=== PATIENT | female | born 1975 | race African-American/Black ===

== ENCOUNTER 2020-03-26 07:47 | Observation (INO) ==
[2020-03-26 09:07] LABS: Basophils % 0.6 % (0.0-0.8); Eosinophils % 0.4 % (0.00-10.9); Hematocrit 40.4 VOL% (35.7-47.0); Hemoglobin 13.4 GM/DL (12.0-16.0); Immature Granulocytes % 0.2 %; Immature Granulocytes Absolute 0.01 #; Lymphocytes # 1.7 10*3/uL (1.4-4.0); Lymphocytes % 31.1 % (21.3-54.2); Mean Corpuscular HGB Conc 33.2 GM/DL (32-36); Mean Corpuscular Volume 89.2 FL (87-102); Mean Platelet Volume 10.5 FL (9.6-12.0); Monocytes % 7.2 % (1.7-12.7); Neutrophils % 60.5 % (38.7-73.9); Platelet Count 212 T/CUMM (130-400); Red Blood Count 4.53 MC/CUMM (3.8-5.5); Red Cell Distribution Width 13.8 % (9.3-17.3); White Blood Count 5.3 T/CUMM (4-12)
[2020-03-26 09:31] LABS: Albumin 3.2 G/DL (3.4-5.0); Bilirubin,Total 0.5 MG/DL (0.2-1.0); Calcium 8.9 MG/DL (8.5-10.1); Osmolality,Calculated 281.3 MOS/KG (273-304); Total Protein 7.2 G/DL (6.4-8.3)
[2020-03-26] MEDS ORDERED: ASPIRIN 325 MG TABLET PO STA (10:48)
[2020-03-26] MEDS ORDERED: ONDANSETRON 4 MG/2 ML VIAL IV PRN (10:48)
[2020-03-26] MEDS ORDERED: DEXTROSE 50% 25 GM/50 ML VIAL IV PRN ×2 (10:48)
[2020-03-26] MEDS ORDERED: ENOXAPARIN 40 MG/0.4 ML SYRINGE SUBCUT SCH (12:00)
[2020-03-26] MEDS: INSULIN LISPRO 100 UNIT/ML SUBCUT SCH ×3 (13:56→21:53)
[2020-03-26] MEDS: INSULIN REGULAR 100 UNIT/ML SUBCUT SCH (16:26)
[2020-03-26 18:24] LABS: Barbiturates Screen,Urine Negative (Negative); Benzodiazepines Screen,Urine Negative (Negative); Cannabinoid Screen,Urine Negative (Negative); Opiate Screen,Urine Negative (Negative); Phencyclidine Screen,Urine Negative (Negative)
[2020-03-26] MEDS: ENOXAPARIN 40 MG/0.4 ML SYRINGE SUBCUT SCH (21:53)
[2020-03-27 05:21] LABS: Basophils % 0.4 % (0.0-0.8); Eosinophils % 0.2 % (0.00-10.9); Hematocrit 37.5 VOL% (35.7-47.0); Hemoglobin 12.4 GM/DL (12.0-16.0); Immature Granulocytes % 0.2 %; Immature Granulocytes Absolute 0.01 #; Lymphocytes # 2.4 10*3/uL (1.4-4.0); Lymphocytes % 46.5 % (21.3-54.2); Mean Corpuscular HGB Conc 33.1 GM/DL (32-36); Mean Corpuscular Volume 89.3 FL (87-102); Mean Platelet Volume 10.5 FL (9.6-12.0); Monocytes % 7.6 % (1.7-12.7); Neutrophils % 45.1 % (38.7-73.9); Platelet Count 199 T/CUMM (130-400); Red Cell Distribution Width 13.9 % (9.3-17.3); White Blood Count 5.2 T/CUMM (4-12)
[2020-03-27 05:56] LABS: Alanine Aminotransferase 38 U/L (13-56); Alkaline Phosphatase 106 U/L (45-117); Aspartate Amino Transferase 31 U/L (0-37); Bilirubin,Direct < 0.100 MG/DL (0.0-0.20); Bilirubin,Indirect 0.7 MG/DL (0.0-1.0); Blood Urea Nitrogen 9 MG/DL (7-18); Calcium 8.7 MG/DL (8.5-10.1); Estimated Glom Filtration Rate 162 ML/MIN; Glucose 103 MG/DL (74-106); HDL Cholesterol 28 MG/DL (40-60); Osmolality,Calculated 279.3 MOS/KG (273-304); Risk Ratio 6.71; Total Protein 6.6 G/DL (6.4-8.3); Triglycerides 110 MG/DL (2-150)
[2020-03-27] MEDS: POTASSIUM CHLORIDE 20 MEQ TABLET PO PRN ×2 (06:34→09:24)
[2020-03-27 06:52] LABS: Calcium 8.5 MG/DL (8.5-10.1); Ferritin 97.4 ng/ml (8-252)
[2020-03-27] MEDS: INSULIN REGULAR 100 UNIT/ML SUBCUT SCH ×2 (08:40→15:48)
[2020-03-27] MEDS: PANTOPRAZOLE 40 MG TABLET PO SCH (08:40)
[2020-03-27] MEDS: ENOXAPARIN 40 MG/0.4 ML SYRINGE SUBCUT SCH ×2 (08:40→21:29)
[2020-03-27] MEDS: INSULIN LISPRO 100 UNIT/ML SUBCUT SCH ×4 (08:40→21:58)
[2020-03-27] MEDS: ASPIRIN 325 MG TABLET PO SCH (08:40)
[2020-03-27] MEDS: ZINC SULFATE 220 MG CAPSULE PO SCH (08:40)
[2020-03-27] MEDS: ASCORBIC ACID 500 MG TABLET PO SCH (08:40)
[2020-03-27] MEDS: THIAMINE 100 MG TABLET PO SCH (08:40)
[2020-03-27] MEDS: DEXAMETHASONE 10 MG/1 ML VIAL IV SCH (10:44)
[2020-03-27] MEDS: sitaGLIPtin 25 MG TABLET PO SCH (21:27)
[2020-03-27] MEDS: FLUTICASONE 50 MCG NASAL SPRAY 16 GM BOTTLE BOTH NARES SCH (21:27)
[2020-03-27] MEDS: metFORMIN 500 MG TABLET PO SCH (21:27)
[2020-03-28 06:57] LABS: Basophils % 0.3 % (0.0-0.8); Eosinophils % 0.2 % (0.00-10.9); Hematocrit 40.2 VOL% (35.7-47.0); Immature Granulocytes % 0.3 %; Immature Granulocytes Absolute 0.02 #; Lymphocytes # 2.3 10*3/uL (1.4-4.0); Lymphocytes % 38.7 % (21.3-54.2); Mean Corpuscular HGB Conc 32.3 GM/DL (32-36); Mean Corpuscular Volume 90.5 FL (87-102); Mean Platelet Volume 10.9 FL (9.6-12.0); Monocytes % 6.2 % (1.7-12.7); Neutrophils % 54.3 % (38.7-73.9); Platelet Count 190 T/CUMM (130-400); Red Blood Count 4.44 MC/CUMM (3.8-5.5); Red Cell Distribution Width 13.8 % (9.3-17.3); White Blood Count 5.8 T/CUMM (4-12)
[2020-03-28 07:17] LABS: Albumin 2.9 G/DL (3.4-5.0); Bilirubin,Direct 0.11 MG/DL (0.0-0.20); Bilirubin,Indirect 0.3 MG/DL (0.0-1.0); Bilirubin,Total 0.4 MG/DL (0.2-1.0); Calcium 8.6 MG/DL (8.5-10.1); Ferritin 107.9 ng/ml (8-252); Osmolality,Calculated 282.1 MOS/KG (273-304); Total Protein 6.7 G/DL (6.4-8.3)
[2020-03-28] MEDS: INSULIN LISPRO 100 UNIT/ML SUBCUT SCH ×4 (07:30→21:09)
[2020-03-28] MEDS: INSULIN REGULAR 100 UNIT/ML SUBCUT SCH ×2 (07:30→17:10)
[2020-03-28] MEDS: lisinopriL 20 MG TABLET PO SCH (10:36)
[2020-03-28] MEDS: ASCORBIC ACID 500 MG TABLET PO SCH (10:36)
[2020-03-28] MEDS: sitaGLIPtin 25 MG TABLET PO SCH ×2 (10:36→21:08)
[2020-03-28] MEDS: hydroCHLOROthiazide 25 MG TABLET PO SCH (10:36)
[2020-03-28] MEDS: DEXAMETHASONE 10 MG/1 ML VIAL IV SCH (10:37)
[2020-03-28] MEDS: ASPIRIN 325 MG TABLET PO SCH (10:37)
[2020-03-28] MEDS: metFORMIN 500 MG TABLET PO SCH ×2 (10:37→21:08)
[2020-03-28] MEDS: PANTOPRAZOLE 40 MG TABLET PO SCH (10:37)
[2020-03-28] MEDS: THIAMINE 100 MG TABLET PO SCH (10:37)
[2020-03-28] MEDS: METOPROLOL SUCCINATE XL 50 MG TABLET PO SCH (10:37)
[2020-03-28] MEDS: ENOXAPARIN 40 MG/0.4 ML SYRINGE SUBCUT SCH ×2 (10:37→21:08)
[2020-03-28] MEDS: FLUTICASONE 50 MCG NASAL SPRAY 16 GM BOTTLE BOTH NARES SCH ×2 (10:38→21:08)
[2020-03-28] MEDS: ZINC SULFATE 220 MG CAPSULE PO SCH (12:52)
[2020-03-29] MEDS: INSULIN LISPRO 100 UNIT/ML SUBCUT SCH (07:30)
[2020-03-29] MEDS: INSULIN REGULAR 100 UNIT/ML SUBCUT SCH (07:30)
[2020-03-29 08:21] LABS: Ferritin 94.4 ng/ml (8-252); Osmolality,Calculated 279.3 MOS/KG (273-304)
[2020-03-29] MEDS: ZINC SULFATE 220 MG CAPSULE PO SCH (08:54)
[2020-03-29] MEDS: FLUTICASONE 50 MCG NASAL SPRAY 16 GM BOTTLE BOTH NARES SCH (08:54)
[2020-03-29] MEDS: sitaGLIPtin 25 MG TABLET PO SCH (08:54)
[2020-03-29] MEDS: ENOXAPARIN 40 MG/0.4 ML SYRINGE SUBCUT SCH (08:54)
[2020-03-29] MEDS: lisinopriL 20 MG TABLET PO SCH (08:55)
[2020-03-29] MEDS: THIAMINE 100 MG TABLET PO SCH (08:55)
[2020-03-29] MEDS: ASCORBIC ACID 500 MG TABLET PO SCH (08:55)
[2020-03-29] MEDS: hydroCHLOROthiazide 25 MG TABLET PO SCH (08:55)
[2020-03-29] MEDS: PANTOPRAZOLE 40 MG TABLET PO SCH (08:55)
[2020-03-29] MEDS: METOPROLOL SUCCINATE XL 50 MG TABLET PO SCH (08:55)
[2020-03-29] MEDS: ASPIRIN 325 MG TABLET PO SCH (08:55)
[2020-03-29] MEDS: DEXAMETHASONE 10 MG/1 ML VIAL IV SCH (08:55)
[2020-03-29] MEDS: metFORMIN 500 MG TABLET PO SCH (09:50)
[2020-03-29 11:01] VITALS: BP 119/80
== END 2020-03-29 13:30 | disposition home or self-care (01) ==
LOC: N.EDINP 07:47 → N.ED 07:47 → SUATTDRO 10:47 → N.2E 13:19
PROVIDERS: ADMIT Internal Medicine; ATTEND Internal Medicine